=== PATIENT | female | born 1970 | race Hispanic/Latino ===

== ENCOUNTER 2024-03-16 15:40 | Emergency (ER) | payer BC, MEDICAID ==
[~2024-03-16] VITALS: Ht 165.1 cm; Wt 127.0 kg
[2024-03-16] MEDS: ketOROlac 30MG VIAL (30MG/ML) IM ONE (16:23)
--- NOTE | 2024-03-16 16:35 | ERN ---
General Chief Complaint: Mechanical Fall Stated Complaint: FALL Time Seen by MD: 15:47 Time Seen by Midlevel: 15:47 Source: patient History of Present Illness Initial Comments Patient is a morbidly obese 53-year-old female presenting for evaluation following a mechanical ground level fall. According to patient she was at [facility] practice with her daughter when she accidentally tripped over her shoe landing on her knees and hands. She denies any loss of consciousness or head injury. On arrival she reports pain to her left knee and left wrist. Patient has no other concerns at this time. Denies being on any blood thinners. Denies being at this time. Allergies: Coded Allergies: adhesive tape (Unverified Allergy, Unknown, 03/16/24) latex (Unverified Allergy, Unknown, 03/16/24) Past Medical History Past Medical History: Hypothyroid Medical History Other: SPENCER Past Surgical History: Cholecystectomy, Other, Surgical History Other: MULTIPLE ABDOMINAL SX ROS Dictation CONSTITUTIONAL: Negative except for HPI HEAD/FACE: Negative except for HPI EENT: Negative except for HPI RESPIRATORY: Negative except for HPI GASTROINTESTINAL/ABDOMINAL: Negative except for HPI GENITOURINARY: Negative except for HPI MUSCULOSKELETAL: Negative except for HPI INTEGUMENTARY: Negative except for HPI NEUROLOGICAL/PSYCH: Negative except for HPI HEMATOLOGIC/LYMPHATIC: Negative except for HPI All Systems Negative, Except as noted above. 13 point review of systems assessed and all negative except for above. Physical Exam Physical Exam Dictation Vital Signs reviewed General Appearance: Alert, oriented x 3, no acute distress, well developed, nourished. Head and Face: non-traumatic. Eyes: PERRL, pink conjunctivas, eyelid no trauma, anterior chamber with arcus senilis. Ears: Pinnas intact and no signs of trauma or erythema ear canals clear and no discharge TM no erythema Nose: No discharge, no bleeding. Oropharynx: Mouth normal, tongue pink, pharynx clear,no erythema, tonsils no exudates, no abscesses noted, mucous membrane moist Neck: Supple, non-tender, no thyromegaly, no masses, no JVD, no bruits Breast:Deferred Chest:No tenderness, no crepitus, no paradoxical movement, no retractions Lungs:Clear, well-ventilated, symmetric, no rales, no wheezing, no rhonchi, no stridor, good breath sounds bilaterally Heart: Regular rate, regular rhythm, no murmur, no gallops Vascular: no peripheral edema, Abdomen: Soft, positive bowel sounds, nondistended, no guarding, nontender, no rebound, no masses no hepatomegaly, no splenomegaly, no Rojas's sign, no hernias. Rectal: Deferred Genital: Deferred Neurological: Normal speech, motor function intact, sensory function intact Musculoskeletal: Neck nontender, full range of motion, back nontender, full range of motion, Extremities: nontender, full range of motion Skin: Color pink, dry, no turgor, no rash, no lacerations, no abrasions, no contusions. Lymphatic: Deferred MDM MDM: Patient is a morbidly obese 53-year-old female presenting for evaluation following a mechanical ground level fall. According to patient she was at band practice with her daughter when she accidentally tripped over her shoe landing on her knees and hands. She denies any loss of consciousness or head injury. On arrival she reports pain to her left knee and left wrist. Patient has no other concerns at this time. Denies being on any blood thinners. Denies being at this time. On physical examination patient is in no acute distress. Patient was wheeled in by daughter in wheelchair. During my examination patie nt was able to bear weight. She has a large abrasion to her left knee and left ankle. She was full range motion of the left knee. She has normal sensation to bilateral lower extremities. She has 2+ DP, PT pulses bilaterally. She has full range of motion of bilateral upper extremities including bilateral elbows and bilateral wrists. There are no signs of head trauma. Her neurological examination is unremarkable. There is no need for advanced imaging of the head or neck at this time given her reassuring physical examination. Patient is a GCS of 15 at this time. Her left knee and left ankle x-ray are negative for any acute fracture. Patient was given an ketorolac IM and will be discharged home with supportive management. Differential diagnosis: Fracture, contusion, abrasion, dislocation There are no social concerns with this patient. Prescription drug management Prescriptions will include: None Medical management and examination interpretation discussions were had by me with other qualified healthcare professionals as indicated for the patient's care. ED Course Orders Procedure Category Date Status Time Ankle Comp 3vws Lt RAD 03/16/24 Resulted 15:59 Knee 3vws Lt RAD 03/16/24 Resulted 15:59 Ketorolac PHA 03/16/24 Complete Tromethamine 30mg/Ml 16:00 Current Medications Medications (Trade) Dose Ordered Sig/Deepa Route PRN Reason Start Time Stop Time Status Last Admin Dose Admin Ketorolac Tromethamine (toRADol) 30 mg ONCE ONCE IM 03/16/24 16:00 03/16/24 16:01 DC 03/16/24 16:23 Vital Signs Date Time Temp Pulse Resp B/P (MAP) Pulse Ox O2 Delivery O2 Flow Rate FiO2 03/16/24 17:02 98.2 80 16 124/82 97 Room Air* 0 21 03/16/24 15:43 98.8 78 20 129/82 97 Room Air 0 [place] [address] [address] [id number] IMAGING REPORT Signed PATIENT: MAURIZIO SCHMITZ MR#: [id number] : 1970 SEX: F AGE: 53 LOCATION: [facility] ORDER 58 STATUS: REG ER [facility]ITAL REPORT#: [id number] SERVICE 58 REASON: fall left ankle pain ORDERING PHYSICIAN: ABDELRAHMAN SALAZAR PROCEDURE: KNEE 3V LT - KNEE 3VWS LT KNEE 3VWS LT HISTORY: Status post fall COMPARISON: None TECHNIQUE: 2 images of left knee were obtained. FINDINGS: There is no acute displaced fracture or dislocation. IMPRESSION: 1. Findings as described above. DICTATED BY: DEBRA PRESLEY MD DATE: 03/16/241645 ELECTRONICALLY SIGNED BY: DEBRA PRESLEY MD DATE: 03/16/241648 [place] [id number] [address] IMAGING REPORT Signed PATIENT: MAURIZIO SCHMITZ MR#: [id number] : 1970 SEX: F AGE: 53 LOCATION: [facility] ORDER 58 STATUS: REG ER REPORT#: [id number] SERVICE 58 REASON: fall left ankle pain ORDERING PHYSICIAN: ABDELRAHMAN SALAZAR PROCEDURE: [id number] - ANKLE COMP 3VWS LT ANKLE COMP 3VWS LT HISTORY: Status post fall COMPARISON: None TECHNIQUE: 3 images of left ankle were obtained. FINDINGS: There is no acute displaced fracture or dislocation. Degenerative changes are seen. IMPRESSION: 1. Findings as described above. DICTATED BY: DEBRA PRESLEY MD DATE: 03/16/24 163 ELECTRONICALLY SIGNED BY: DEBRA PRESLEY MD DATE: 03/16/24 1648 DX & DISP Disposition: Discharge Departure Impression: Primary Impression: Fall Additional Impressions: Contusion of left knee, Contusion of left ankle Condition: Stable Additional Instructions: Your x-ray of the left knee and left ankle are negative for any acute fracture. Follow up with your PCP in 2-3 days for repeat evaluation. If you develop any new or worsening symptoms please report to the ER for further evaluation. Time of Disposition: 16:34 I have reviewed the case, and I agree with, Diagnosis and Plan I performed the substantive portion of the visit. I have reviewed and personally made and approve the management plan that is documented in the note by myself or the JOSE MANUEL. I acknowledge for responsibility for the patient's management plan. ABDELRAHMAN SALAZAR Mar 16, 2024 16:35
--- NOTE | 2024-03-16 16:48 | HMCIMG ---
ANKLE COMP 3VWS LT HISTORY: Status post fall COMPARISON: None TECHNIQUE: 3 images of left ankle were obtained. FINDINGS: There is no acute displaced fracture or dislocation. Degenerative changes are seen. IMPRESSION: 1. Findings as described above.
--- NOTE | 2024-03-16 16:49 | HMCIMG ---
KNEE 3VWS LT HISTORY: Status post fall COMPARISON: None TECHNIQUE: 2 images of left knee were obtained. FINDINGS: There is no acute displaced fracture or dislocation. IMPRESSION: 1. Findings as described above.
[2024-03-16 17:02] VITALS: BP 124/82; PULSE 80; RESP 16; TEMP 98.2; O2SAT 97
== END 2024-03-16 17:04 | disposition home or self-care (01) ==
LOC: EDH 15:40
DX: S80.02XA Contusion of left knee, initial encounter (principal); S90.02XA Contusion of left ankle, initial encounter; E03.9 Hypothyroidism, unspecified; Z90.49 Acquired absence of other specified parts of digestive tract; W01.0XXA Fall on same level from slipping, tripping and stumbling without subsequent striking against object, initial encounter; Y93.89 Activity, other specified; Y92.89 Other specified places as the place of occurrence of the external cause; Y99.8 Other external cause status
CPT/HCPCS: 99284; 73610; 73562; 96372; J1885